=== PATIENT | female | born 1955 | race Caucasian/White ===

== ENCOUNTER 2018-04-04 14:02 | Outpatient (CLI) | payer MEDICARE ==
[~2018-04-04 14:02] MED LIST: Gadobenate Dimeglumine 529 MG/1 ML (20ML VIAL) ONE
--- NOTE | 2018-04-04 16:05 | RAD ---
LUMBAR SPINE SERIES TWO VIEWS FLEXION AND EXTENTION LATERAL: History: Chronic back pain, bilateral lower extremity radiculopathy, compression fracture. FINDINGS: Vertebral bodies appear to maintain fairly normal height. There are bilateral pedicle screws placed a t L2, L3, L4, and L5. Markers of disc implants are in the intervening disc levels at L2-3 and L3-4. T here is severe disc narrowing at the L4-5 level. There is very limited motion seen on either flexion or extension on these views. Some slight retrolisthesis of L1 on L2. IMPRESSION: Post-operative changes of the spine. POS: TERRELL
--- NOTE | 2018-04-04 18:32 | MRI ---
MRI LUMBAR SPINE WITH AND WITHOUT CONTRAST: DATE: 04/04/18 HISTORY: 63-year-old female with chronic low back pain and vertebral compression fracture, [id number]. Chronic l ow back pain. Bilateral lumbar radiculopathy. COMPARISON: MRI of 05/07/16. TECHNIQUE: Multiple sequences obtained in axial and sagittal planes, pre and post IV injection of gadolinium-bas ed contrast agent: 17 mL Multihance. FINDINGS: There is a right adrenal nodule which has not significantly changed compared to the previous MRI of , or the CT of abdomen and pelvis of 08/30/14. There are five lumbar type vertebrae. Vertebral body heights are maintained. Bilateral pedicle screws at L2, L3, L4, and L5 remain. Again noted are the laminectomy defects from L2 through L4-5. Exaggera janay lordosis. Vertebral body heights are maintained. T11-12: Mild disc bulge. No high grade central or neural foraminal stenosis identified on sagittal im ages. T12-L1: Disc space maintained. No central or neural foraminal stenosis. Conus medullaris terminates a t mid L1 level. L1-2: Degenerative retrolisthesis of L1 on L2. Mild to moderate disc space narrowing. Diffuse disc bu lge. Mild to moderate central spinal canal stenosis. Moderate bilateral neural foraminal stenosis. L2-3: Generous caliber of spinal canal and thecal sac due to midline laminectomy. No high grade neura l foraminal stenosis identified. L3-4: Mild grade I anterolisthesis of L3 on L4. Partial ankylosis by osseous bridges at the periphery of the end plates, between the vertebral bodies. Generous caliber of spinal canal and thecal sac due to midline laminectomy. No severe neural foraminal stenosis identified. L4-5: Prominent grade I anterolisthesis of L4 on L5. Ankylosis of bilateral facet joints. Moderate to severe disc space narrowing. No high grade neural foraminal stenosis. L5-S1: Minimal narrowing of the anterior aspect of the disc space. The rest of the disc space is norm al. No central or neural foraminal stenosis. Moderate left degenerative facet changes. Ankylosis of r ight facet joint. The metallic hardware causes magnetic susceptibility artifact, making it difficult to evaluate for ab normal enhancement throughout the levels of surgery. The cauda equina is posteriorly positioned in th e thecal sac throughout the levels of laminectomy, probably because of the laminectomy, and not neces sarily representing chronic arachnoiditis, although that is a possibility. No significant interval ch panchito detected compared to 05/07/16. IMPRESSION: 1. Status post laminectomies and posterior lumbar fusion with pedicle screws at L2-3-4-5. 2. Prominent grade I spondylolisthesis at L4-5 stabilized by the fusion and hardware. 3. Mild to moderate central spinal canal stenosis and moderate bilateral neural foraminal stenos is at L1-2. 4. No other level of central stenosis. 5. Exaggerated lordosis. 6. No interval change overall since 05/07/16. MCKINLEY Guadalupe POS: TERRELL
== END 2018-04-04 14:03 | disposition home or self-care (01) ==
LOC: SCSMRI 14:02
PROVIDERS: ATTEND Anesthesiology Pain Medicine
DX: M48.56XA Collapsed vertebra, not elsewhere classified, lumbar region, initial encounter for fracture (principal); M43.16 Spondylolisthesis, lumbar region; M48.061 Spinal stenosis, lumbar region without neurogenic claudication; M40.56 Lordosis, unspecified, lumbar region; Z98.1 Arthrodesis status
CPT/HCPCS: 72120; 72158; 82565

== ENCOUNTER 2019-01-29 10:48 | Outpatient (CLI) | payer MEDICARE ==
--- NOTE | 2019-01-29 12:59 | CT ---
CT OF ABDOMEN AND PELVIS: DATE: 01/29/2019. COMPARISON: None. HISTORY: Left-sided mass/bulging. TECHNIQUE: Axial CT imaging at 5 mm intervals through abdomen/pelvis with IV and oral contrast. Coronal and sagi ttal reformatted imaging obtained. FINDINGS: Imaged lung bases are unremarkable with no free intraperitoneal air or fluid. Diffuse hepatic hypodensities suggest steatosis. Gallbladder, spleen, pancreas, adrenal gland on the left, and kidneys demonstrate no acute findings. There is an adrenal mass on the right measuring 1.6 cm, unchanged when compared to prior lumbar spine MRI performed 05/07/2016. No evidence for bowel inflammatory change or obstruction. There is extensive postoperative hardware associated with the lumbar spine, which includes bilateral pedicle screws at the L2, L3, L4, and L5 levels with vertically oriented interlocking rods as well as intervertebral disc devices at L2-3 and L3-4. Anterolisthesis of L4 on L5 noted measuring 7 mm. Th ere is disc space narrowing with degenerative endplate change, vacuum disc formation, and anterior osteophyte formation at L1-2. Bilateral laminectomy changes are noted at L2, L3, L4, and L5. There is degenerative change involving bilateral sacral iliac joints. There is a small fat-containing umbilical hernia. There is an area marked on the patient's skin in the area of probable concern which is in the left an terior upper abdomen. In this region there is no mass lesion, fluid collection, or hernia. Uterus appears surgically absent. Vascular structures demonstrate no acute findings. IMPRESSION: There are incidental findings as detailed above. Of note, the area of palpable concern, marked in the left upper anterior abdomen demonstrates no CT abnormality. Transcribed Date/Time: 01/29/2019 1:11 PM
== END 2019-01-29 10:49 | disposition home or self-care (01) ==
LOC: SCSCT 10:48
PROVIDERS: ATTEND Family Medicine
DX: R19.02 Left upper quadrant abdominal swelling, mass and lump (principal)
CPT/HCPCS: 74177; 82565

== ENCOUNTER 2019-04-22 10:01 | Outpatient (CLI) | payer MEDICARE | END 2019-04-22 10:02 | disposition home or self-care (01) | LOC: DTY/OP 10:01 | PROVIDERS: ATTEND Specialist | DX: Z01.818 Encounter for other preprocedural examination (principal); E66.01 Morbid (severe) obesity due to excess calories | CPT/HCPCS: 97802 ==

== ENCOUNTER 2019-08-14 08:49 | Outpatient (CLI) | payer MEDICARE, OTHER ==
[2019-08-14 18:10] LABS: SARS-CoV-2 MS2 Positive; SARS-CoV-2 N Gene Negative; SARS-CoV-2 S Gene Negative; SARS-CoV-2 orf1ab Negative
== END 2019-08-14 08:50 | disposition home or self-care (01) ==
LOC: LABBT 08:49
PROVIDERS: ATTEND Specialist
DX: Z01.812 Encounter for preprocedural laboratory examination (principal); Z11.59 Encounter for screening for other viral diseases; E66.01 Morbid (severe) obesity due to excess calories
CPT/HCPCS: 87635; U0003

== ENCOUNTER 2019-08-14 12:00 | Inpatient (IN) | payer MEDICARE ==
[2019-08-14 11:15] VITALS: BMI 43.7
[2019-08-18] MEDS ORDERED: Acetaminophen 500 MG TAB ONE (06:07)
[2019-08-18] MEDS ORDERED: Heparin 5,000 UNITS/ML VIAL ONE (06:48)
[2019-08-18] MEDS ORDERED: Ketorolac Tromethamine 30 MG/ML VIAL ONE (06:49)
[2019-08-18] MEDS ORDERED: Fentanyl 250 MCG/5 ML VIAL ONE (06:50)
[2019-08-18] MEDS ORDERED: Lidocaine 1% w/Epinephrine 1:100K 20 ML VIAL ONE (06:55)
[2019-08-18] MEDS ORDERED: Bupivacaine 0.25% HCL 30 ML VIAL ONE (06:55)
[2019-08-18] MEDS ORDERED: Ondansetron HCl/PF 4 MG/2 ML Vial IVP PRN (08:17)
[2019-08-18] MEDS ORDERED: Promethazine HCl 25 MG/ML VIAL IM PRN ×2 (08:17→08:52)
[2019-08-18] MEDS ORDERED: Promethazine HCl 25 MG/ML VIAL SLOW IVP PRN (08:17)
[2019-08-18] MEDS ORDERED: Morphine 2 MG/ML SYRINGE SLOW IVP PRN (08:52)
[2019-08-18] MEDS ORDERED: Morphine 4 MG/ML VIAL SLOW IVP PRN (08:52)
[2019-08-18] MEDS ORDERED: diphenhydrAMINE 50 MG/ML VIAL IVP PRN (08:52)
[2019-08-18] MEDS ORDERED: Ondansetron PF 4 MG/2 ML Vial IVP PRN (08:52)
[2019-08-18] MEDS ORDERED: hydrALAZINE 20 MG/ML VIAL SLOW IVP PRN (08:52)
[2019-08-18] MEDS ORDERED: Dextrose 5% in Water 1,000 ML IV PRN (08:52)
[2019-08-18] MEDS ORDERED: Dextrose 50% Abboject 50 ML SYRINGE SLOW IVP PRN (08:52)
[2019-08-18] MEDS ORDERED: Fentanyl 100 MCG/2 ML VIAL ONE ×3 (09:10→09:53)
[2019-08-18] MEDS ORDERED: Rocuronium Bromide 10 MG/ML (10ML VIAL) ONE (09:52)
[2019-08-18] MEDS ORDERED: Glycopyrrolate 0.2 MG/ML 5 ML SYRINGE ONE (09:52)
[2019-08-18] MEDS ORDERED: Labetalol HCl 100 MG/20 ML VIAL ONE (09:52)
[2019-08-18] MEDS ORDERED: Dexamethasone 20 MG/5 ML VIAL ONE (09:52)
[2019-08-18] MEDS ORDERED: Lidocaine 1% PF 5 ML VIAL ONE (09:52)
[2019-08-18] MEDS ORDERED: Albuterol Sulfate HFA (OR ONLY) ONE (09:52)
[2019-08-18] MEDS ORDERED: Ondansetron PF 4 MG/2 ML Vial ONE (09:52)
[2019-08-18] MEDS ORDERED: PROPOFOL 200 MG/20 ML VIAL ONE (09:52)
[2019-08-18] MEDS: Pantoprazole 40 MG VIAL IVP SCH (10:42)
--- NOTE | 2019-08-18 10:54 | OP ---
DATE OF PROCEDURE: 08/18/2019 PREOPERATIVE DIAGNOSIS: Morbid obesity with multiple comorbidities. POSTOPERATIVE DIAGNOSIS: Morbid obesity with multiple comorbidities. PROCEDURE PERFORMED: Laparoscopic vertical sleeve gastrectomy using the ViSiGi device. ANESTHESIA: General endotracheal. INDICATIONS: The patient is a 64-year-old obese white female. She presented for consideration of weight loss surgery. She has lost 20 pounds in preparation for surgery and has completed preoperative evaluation and education. She is taken to the operating room at this time for sleeve gastrectomy. DESCRIPTION OF OPERATION: Informed consent was obtained. The patient was taken to the operating room where general endotracheal anesthesia was obtained with the patient in supine position. Abdomen was prepped with ChloraPrep and draped in sterile fashion. Local anesthetic was infiltrated and 5 mm supraumbilical incision was created through which Veress needle was passed to the peritoneal cavity and pneumoperitoneum established using carbon dioxide up to a pressure of 15 mmHg. A 5 mm trocar port was passed through this same incision. Laparoscopic camera was passed through this port. Under direct vision, 4 additional ports were placed including bilateral 5 mm subcostal ports, a 12 mm right paramedian port and a 15 mm left paramedian port. A 5 mm epigastric incision was created through which Nathansen retractor was passed into the abdominal cavity and used to retract the left lobe of the liver. The patient was placed into reverse Trendelenburg position. The ViSiGi device was advanced within the stomach and used to decompress this. The pylorus was identified and beginning 4 cm proximal to the pylorus, the omentum and vascular tissue along the greater curvature was divided using the LigaSure in an ascending fashion up to the angle of His. All posterior adhesions were mobilized. The short gastric vessels were carefully divided and then hemostasis was maintained using the LigaSure. Once this was completely mobilized, the ViSiGi was carefully positioned at the level of the pylorus and placed to suction, which was clearly defining the lesser curvature of the stomach. The gastrectomy was then performed using a series of fires of the Boykin stapler using a green load followed by a gold load and a series of blue loads until completion of the gastrectomy. The ViSiGi along the lesser curvature was used as a size 36 bougie to guide in the gastric division. Care was taken to avoid narrowing the incisura or the gastroesophageal junction. The integrity of the staple line was then assessed by insufflating gas through the ViSiGi while irrigating along the staple line. There was no evidence of an air leak. There was no evidence of bleeding along the staple line. The resected stomach was then removed through the 15 mm port and the fascia was closed with 0 Vicryl suture using a GraNee needle. I then closed the 12 mm port also using the GraNee needle and 0 Vicryl suture. The Nathansen retractor was removed. All ports and instruments were removed under direct vision. All irrigant was aspirated. Pneumoperitoneum was carefully evacuated. 0.25% Marcaine with epinephrine was infiltrated into each port site. Skin edges approximated with 4-0 Monocryl subcuticular suture. Dermabond was placed externally. There were no complications. The patient tolerated the procedure well and was taken to recovery room in stable condition. FINDINGS: The patient had some adhesions to her anterior abdominal wall in the supraumbilical region. These were taken down using a combination of blunt dissection and sharp dissection. The reason for these adhesions were not apparent. There were also adhesions to the posterior aspect of the stomach and the retroperitoneum and these were lysed uneventfully. Her anatomy was otherwise unremarkable. The surgery was performed without complication or any significant blood loss. The leak test was negative. She tolerated the procedure well, was taken to recovery room in stable condition. Job ID: [id number]
[2019-08-18] MEDS: 1/2 NS w/KCL 20 mEq 1,000 ML IV SCH ×2 (11:04→19:02)
[2019-08-18] MEDS: HumaLOG 300 UNITS/3 ML VIAL SC PRN ×2 (11:42→16:23)
[2019-08-18] MEDS: Ketorolac Tromethamine 30 MG/ML VIAL IVP SCH ×3 (12:41→23:43)
[2019-08-18] MEDS: Hydrocodone-Acetamin 15 ML UDCUP PO PRN ×3 (13:18→22:31)
[2019-08-18] MEDS ORDERED: Enoxaparin Sodium 40 MG/0.4 ML SYRINGE SC SCH (21:00)
[2019-08-18] MEDS ORDERED: Zolpidem Tartrate 5 MG TAB PO PRN (22:12)
[2019-08-19] MEDS: Ketorolac Tromethamine 30 MG/ML VIAL IVP SCH (06:05)
[2019-08-19] MEDS: Hydrocodone-Acetamin 15 ML UDCUP PO PRN (06:05)
[2019-08-19] MEDS: 1/2 NS w/KCL 20 mEq 1,000 ML IV SCH ×2 (06:06→07:53)
[2019-08-19 06:20] LABS: Hemoglobin 13.2 g/dL (12.0-16.0); Mean Corpuscular HGB CONC 32.8 g/dL (32.0-36.0); Mean Corpuscular Hemoglobin 29.3 pg (27.0-31.0); Mean Corpuscular Volume 89.2 fL (78.0-98.0); Mean Platelet Volume 8.4 fL (7.4-10.4); Platelet Count 373 thou/uL (130-400); RBC Distribution Width 12.9 % (11.5-14.5); Red Blood Cell (RBC) Count 4.52 mill/uL (4.20-5.40); White Blood Cell (WBC) Count 18.2 thou/uL (4.8-10.8)
[2019-08-19 06:35] LABS: Anion Gap 14 mmol/L (10-20); BUN (Urea Nitrogen) 25 mg/dL (9.8-20.1); Calc. Creatinine Clearance 104 mL/min (70-130); Calcium 9.7 mg/dL (7.8-10.44); Carbon Dioxide 22 mmol/L (23-31); Chloride 105 mmol/L (98-107); Estimated GFR-MDRD 71; Glucose 108 mg/dL (80-115); Potassium 5.1 mmol/L (3.5-5.1); Sodium 136 mmol/L (136-145)
[2019-08-19 06:40] LABS: Band 3 % (5-11); Lymphocytes 14 % (21-51); MDiff Complete? YES; Monocytes 5 % (0-10); Neutrophil 78 % (42-75)
[2019-08-19 07:31] VITALS: BP 136/84; TEMP 97.8
[2019-08-19] MEDS: Pantoprazole 40 MG VIAL IVP SCH (07:46)
== END 2019-08-19 12:34 | disposition home or self-care (01) | DRG 621 ==
LOC: SURG A 08-18 05:29 → EDSTATUS 08-18 12:00
PROVIDERS: ADMIT Specialist; ATTEND Specialist
PROC: 0DB64Z3 Excision of Stomach, Percutaneous Endoscopic Approach, Vertical (ICD-10-PCS; principal; 2019-08-18)
DX: E66.01 Morbid (severe) obesity due to excess calories (principal); Z68.41 Body mass index [BMI] 40.0-44.9, adult; E55.9 Vitamin D deficiency, unspecified; I10 Essential (primary) hypertension; F32.9 Major depressive disorder, single episode, unspecified; E78.5 Hyperlipidemia, unspecified; I73.9 Peripheral vascular disease, unspecified; K21.9 Gastro-esophageal reflux disease without esophagitis; G47.00 Insomnia, unspecified; Z88.1 Allergy status to other antibiotic agents; Z88.2 Allergy status to sulfonamides; Z88.8 Allergy status to other drugs, medicaments and biological substances
CPT/HCPCS: 36415; 36416; 80048; 85025; 88307; 88312; 94760; C9113; J0694; J1100; J1644; J1650; J1885; J2001; J2270; J2405; J2704; J3010; J3480; S0020

== ENCOUNTER 2020-10-24 09:43 | Outpatient (CLI) | payer MEDICARE ==
[2020-10-24] MEDS ORDERED: Magnevist 469MG/ML 20 ML VIAL ONE (09:54)
== END 2020-10-24 09:44 | disposition home or self-care (01) ==
LOC: TBSIIMAG 09:43
PROVIDERS: ATTEND Anesthesiology Pain Medicine
DX: M48.062 Spinal stenosis, lumbar region with neurogenic claudication (principal); M51.25 Other intervertebral disc displacement, thoracolumbar region; M51.36 Other intervertebral disc degeneration, lumbar region; M43.16 Spondylolisthesis, lumbar region; Z98.1 Arthrodesis status; Z98.890 Other specified postprocedural states
CPT/HCPCS: 72158; 82565; A9579

== ENCOUNTER 2021-02-08 07:46 | Outpatient (CLI) | payer MEDICARE | END 2021-02-08 07:47 | disposition home or self-care (01) | LOC: TBSIIMAG 07:46 | PROVIDERS: ATTEND Anesthesiology Pain Medicine | DX: M51.26 Other intervertebral disc displacement, lumbar region (principal); M51.25 Other intervertebral disc displacement, thoracolumbar region; M48.061 Spinal stenosis, lumbar region without neurogenic claudication | CPT/HCPCS: 72148 ==

== ENCOUNTER 2022-11-23 10:35 | Outpatient (CLI) | payer MEDICARE | END 2022-11-23 10:36 | disposition home or self-care (01) | LOC: NM 10:35 | PROVIDERS: ATTEND Nurse Practitioner Family | DX: M54.50 Low back pain, unspecified (principal); S32.000A Wedge compression fracture of unspecified lumbar vertebra, initial encounter for closed fracture | CPT/HCPCS: 78306; A9503 ==